=== PATIENT | female | born 2000 | race Caucasian/White ===

== ENCOUNTER 2023-02-24 22:17 | Emergency (ER) | payer OTHER ==
[~2023-02-24] VITALS: Ht 170.2 cm; Wt 89.0 kg
[2023-02-24 22:22] VITALS: BP 116/77; PULSE 89; RESP 24; TEMP 98.2; O2SAT 96
--- NOTE | 2023-02-24 22:23 | NUR ---
PT TAKEN TO BED 1
--- NOTE | 2023-02-24 22:48 | NUR ---
Patient resting in bed, A/Ox4, chest rise and fall symmetrical, no s/s of distress, on monitor.
--- NOTE | 2023-02-24 22:58 | NUR ---
Dr. Pathak examining patient.
[2023-02-24] MEDS ORDERED: METOCLOPRAMIDE 10 MG/2 ML INJ VIAL IVP ONE (23:35)
[2023-02-24] MEDS ORDERED: KETOROLAC 30 MG/ML VIAL IVP ONE (23:35)
[2023-02-24] MEDS ORDERED: NACL 0.9% 1,000 ML IV ONE (23:35)
[2023-02-24] MEDS ORDERED: diphenhydrAMINE 50 MG/ML VIAL IVP ONE (23:35)
--- NOTE | 2023-02-25 00:16 | NUR ---
Pt to CT
--- NOTE | 2023-02-25 00:32 | NUR ---
Patient resting in bed, A/Ox4, chest rise and fall symmetrical, no s/s of distress, on monitor. Addendum: 02/25/23 at 0143 by [email or web address] Patient resting in bed, A/Ox4, chest rise and fall symmetrical, no c/o pain or s/s of distress, on monitor.
[2023-02-25] MEDS ORDERED: diphenhydrAMINE 50 MG/ML VIAL ONE (00:37)
--- NOTE | 2023-02-25 00:45 | NUR ---
pt back from ct
--- NOTE | 2023-02-25 01:43 | NUR ---
Patient resting in bed, A/Ox4, chest rise and fall symmetrical, no c/o pain or s/s of distress, on monitor.
[2023-02-25] MEDS ORDERED: METO-485 PO (03:58)
[2023-02-25] MEDS ORDERED: NAPR-54 PO (03:58)
--- NOTE | 2023-02-25 04:00 | NUR ---
Patient resting in bed, A/Ox4, chest rise and fall symmetrical, no c/o pain or s/s of distress, on monitor.
--- NOTE | 2023-02-25 04:03 | NUR ---
Note dipak in ED - 02/25/23 at 0403 by [id number] Patient resting in bed, A/Ox4, chest rise and fall symmetrical, no c/o pain or s/s of distress, on monitor.
[2023-02-25 04:05] VITALS: BP 112/64; PULSE 75; RESP 16; TEMP 98.1; O2SAT 99
== END 2023-02-25 04:05 | disposition home or self-care (01) ==
LOC: MED 22:17
DX: G43.909 Migraine, unspecified, not intractable, without status migrainosus (principal); H53.142 Visual discomfort, left eye; R11.2 Nausea with vomiting, unspecified; Z91.040 Latex allergy status; Z88.8 Allergy status to other drugs, medicaments and biological substances
CPT/HCPCS: 70450; 81025; 96361; 96374; 96375; 99285; J1200; J1885; J2765; J7030